=== PATIENT | male | born 1970 | race Caucasian/White ===

== ENCOUNTER 2019-07-03 10:56 | Emergency (ER) | payer SELFPAY ==
[~2019-07-03] VITALS: Ht 167.6 cm; Wt 125.9 kg
[2019-07-03 10:59] VITALS: TEMP 99.2
[2019-07-03 11:22] LABS: HEMATOCRIT 44.1 % (42.0-52.0); HEMOGLOBIN 15.2 g/dl (13.5-18.0); MEAN CELL VOLUME 89 fl (80.0-100.0); MEAN CORPUSCULAR HEMOGLOBIN 31 pg (27.0-31.0); MEAN CORPUSCULAR HGB CONC 35 g/dl (33.0-37.0); MEAN PLATELET VOLUME 10.3 fl (7.4-10.4); PLATELET COUNT 192 K/mm3 (130-400); RED BLOOD COUNT 4.96 M/mm3 (4.20-5.60); REDCELL DISTRIBUTION WIDTH-CV 12.2 % (11.5-14.5)
[2019-07-03 11:28] LABS: INR 1.1 (0.8-3.0); PROTHROMBIN TIME 12.7 SECONDS (9.7-12.8)
[2019-07-03 11:38] LABS: ALANINE AMINOTRANSFERASE 20 U/L (21-72); ALBUMIN 3.8 gm/dL (3.5-5.0); ALKALINE PHOSPHATASE 79 U/L (50-136); ANION GAP 15 mmol/L (7-16); AST,SGOT 27 U/L (15-37); BILIRUBIN,TOTAL 1.8 mg/dL (0.0-1.0); BLOOD UREA NITROGEN 16 mg/dL (9-20); CALCIUM 8.6 mg/dL (8.4-10.2); CARBON DIOXIDE 21 mmol/L (22-30); CHLORIDE 102 mmol/L (98-107); CREATININE, serum 1.07 (0.66-1.25); GLUCOSE 211 mg/dL (74-106); SODIUM 137 mmol/L (137-145)
[2019-07-03 11:50] LABS: TROPONIN-I < 0.012 ng/mL (0.000-0.035)
[2019-07-03] MEDS ORDERED: GLUCOPHAGE XR500 M1 PO (11:52)
[2019-07-03] MEDS ORDERED: TOPROL XL 25MG25 MG PO (11:52)
[2019-07-03] MEDS ORDERED: COZAAR100 MG PO (11:52)
[2019-07-03] MEDS ORDERED: NORVASC 5MG5 MG/TAB PO (11:53)
[2019-07-03] MEDS ORDERED: LIPITOR 40MG TA40 MG PO (11:53)
[2019-07-03 11:54] LABS: LYMPHOCYTE 13 % (20.0-51.0); NEUTROPHILS 74 % (42.0-75.2); PLATELET ESTIMATE NORMAL (NORMAL)
[2019-07-03] MEDS ORDERED: AMARYL 2MG T2 MG/TAB PO (11:54)
[2019-07-03 12:24] LABS: MONOSCREEN NEGATIVE
[2019-07-03] MEDS ORDERED: DOXYCYCLINE 10100 MG PO (12:49)
[2019-07-03 15:15] VITALS: BP 117/77; PULSE 74
== END 2019-07-03 13:39 | disposition home or self-care (01) ==
LOC: COL.ER 10:56
PROVIDERS: Emergency Medicine
DX: E11.65 Type 2 diabetes mellitus with hyperglycemia (principal); I10 Essential (primary) hypertension; R55 Syncope and collapse; R53.81 Other malaise; Z79.84 Long term (current) use of oral hypoglycemic drugs
CPT/HCPCS: J1885; J7030